=== PATIENT | male | born 1970 | race Caucasian/White ===

== ENCOUNTER 2016-05-05 06:20 | Day surgery (SDC) | payer OTHER ==
[2016-05-03 12:29] VITALS: BMI 30.1
--- NOTE | 2016-05-04 10:54 | HP ---
DATE OF ADMISSION: 05/05/2016 Patient to be admitted to [facility] on May 05, 2016. HISTORY: This is a 45-year-old man admitted to the [facility] for excision of a left anterolateral soft tissue neoplasia. According to the patient, the lesion has been present for quite some time. However, recently there has been significant enlargement over a short period of time. The lesion is now also associated with some discomfort that radiates across the anterior and lateral aspect of the left chest. No past medical history. No history of hypertension; heart disease; diabetes; respiratory, renal or hepatic insufficiency. PAST SURGICAL HISTORY: Significant for repair of a biceps tendon in July 2011. ALLERGIES: PENICILLIN. CURRENT MEDICATIONS: None. SOCIAL HISTORY: Negative tobacco, negative alcohol. FAMILY HISTORY: Nil. REVIEW OF SYSTEMS: Nil. PHYSICAL EXAMINATION: On examination, the patient has an obvious protuberance involving the anterolateral left chest wall close to the costal margin. On palpation, it appears to be confined to the subcutaneous space but is somewhat fixed in its deeper plane. It is nontender on palpation. There are no satellite lesions present, no regional lymphadenopathy. IMPRESSION: Soft tissue neoplasia, left anterolateral chest wall, undetermined etiology. PLAN: Excision of soft tissue neoplasia, left anterolateral chest wall, under local anesthesia with sedation. Indications, alternatives, possible complications reviewed. Consent obtained. Patient to be seen preoperatively by his PMD. Please refer to those notes for those details. PASCUAL FRANCISCO M.D. [id number] cc: Ambulatory Surgery; Dr. Rohan Orozco
[2016-05-05] MEDS ORDERED: LIDOCAINE HCL 1%, 10 MG/ML (20ML VIAL) ONE (07:38)
[2016-05-05] MEDS ORDERED: LIDOCAINE 1%-EPI 1:100,000 30 ML MDV IJ ONE (07:38)
[2016-05-05] MEDS ORDERED: MIDAZOLAM HCL 2 MG/2 ML SINGLE DOSE VIAL ONE (07:53)
[2016-05-05] MEDS ORDERED: PROPOFOL 20 ML ONE ×3 (08:00→08:12)
[2016-05-05] MEDS ORDERED: LIDOCAINE HCL 2% 100 MG/5 ML DISP.SYRIN ONE ×2 (08:00)
[2016-05-05] MEDS ORDERED: LEVOFLOXACIN 500 MG IVPB 100 ML IVPB ONE (08:03)
[2016-05-05] MEDS ORDERED: LIDOCAINE 1%/EPI 1:100000 (20 ML MULTI DOSE VIAL) INF ONE (08:08)
[2016-05-05] MEDS ORDERED: ONDANSETRON 4 MG/2 ML VIAL ONE ×2 (08:19)
[2016-05-05] MEDS ORDERED: GUM MASTIC/STORAX/MSAL/ALCOHOL 1 DRP DROPSBTL MC ONE (08:19)
[2016-05-05] MEDS ORDERED: ONDANSETRON 4 MG/2 ML VIAL IVPUSH PRN (08:42)
[2016-05-05] MEDS ORDERED: oxyCODONE HCL 5 MG TABLET PO PRN (08:42)
[2016-05-05] MEDS ORDERED: PROMETHAZINE HCL 25 MG/1 ML VIAL IVPUSH PRN (08:42)
[2016-05-05] MEDS ORDERED: LACTATED RINGERS SOLUTION 1,000 ML IV SCH (08:45)
--- NOTE | 2016-05-05 08:59 | OP ---
DATE OF OPERATION: 05/05/2016 PREOPERATIVE DIAGNOSIS: Soft tissue neoplasia, left anterolateral chest wall. 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 PROCEDURE: Excision, intramuscular/subfascial left anterolateral chest wall lipomatous neoplasia/intermediate wound closure (fascia). OPERATING SURGEON: Kai Pena MD SIGNAL TOWER OPERATOR: None. ANESTHESIA: Local/MAC, Vy Arenas MD HISTORY: A 45-year-old man who presents with an enlarging soft tissue mass of the left chest wall which is associated with pain that radiates both laterally and anteriorly. Indications, alternatives, possible complications reviewed. Consent obtained. PROCEDURE: With the patient in the right lateral decubitus position, and after IV sedation, the left anterolateral chest wall was prepped and draped in the usual sterile fashion using Betadine. Lidocaine 1% with epinephrine was used to infiltrate soft tissue to create a field block at the intended level of excision. A 5-cm oblique incision was made directly over the mass and deepened into the subcutaneous space. The mass was noted to be subfascial in nature. The fascia of the musculature was incised. Emanating from the muscle fibers of the left anterolateral chest wall, the mass could be visualized. The lipomatous neoplasia was teased from its bed, freeing it from the muscle fibers of the left anterolateral chest wall, ultimately delivering the mass. After adequate hemostasis, the wound was closed in layers. The fascia was approximated using a continuous 3-0 chromic suture. The subcutaneous tissues were approximated with interrupted 3-0 chromic suture. The subcuticular layer was approximated with interrupted 4-0 Biosyn suture. The skin was reapproximated using 4-0 Biosyn in subcuticular space in continuous fashion. Mastisol and Steri-Strips applied. Dressings applied. Procedure terminated. COUNTS: Needle and instrument count correct. ESTIMATED BLOOD LOSS: Minimal. SPECIMEN: Soft tissue subfascial intramuscular neoplasia of the left anterolateral chest wall. DRAINS: None. Patient tolerated the procedure. The procedure was terminated. John [id number] MTDD
[2016-05-05 09:39] VITALS: BP 125/75; PULSE 61; TEMP 98
--- NOTE | 2016-05-07 11:33 | PATH ---
Surgical Pathology Report Patient Name: VASHTI MORENO Med. Rec. #: [id number] /Age/Gender: 1970 (Age: 45) / M Account: [id number] Location: [facility] Taken: 05/05/2016 Received: 05/05/2016 Reported: 05/07/2016 Physicians: Kai Pena M.D. Specimen(s) Received INTRAMUSCULAR LIPOMATOUS NEOPLASM LEFT CHEST WALL Clinical History Benign neoplasm connective and muscle tissue Final Diagnosis SOFT TISSUE, LEFT CHEST WALL, EXCISION: INTRAMUSCULAR LIPOMA. Electronically Signed Toi Espinal M.D. Gross Description Received in formalin, labeled "intramuscular lipomatous neoplasm left chest wall," is a 4.7 x 2.8 x 1.8 cm yellow, irregular portion adipose tissue. Sectioning reveals homogeneous yellow, smooth fat. No areas of hemorrhage or necrosis are identified. Hand Alterations Seamstress sections are submitted in 3 cassettes. 05/06/201605/06/2016
== END 2016-05-05 10:00 | disposition home or self-care (01) ==
LOC: FASU 06:20
PROVIDERS: ATTEND Surgery
PROC: 0KBJ0ZZ Excision of Left Thorax Muscle, Open Approach (ICD-10-PCS; principal; 2016-05-05 08:08)
DX: D21.3 Benign neoplasm of connective and other soft tissue of thorax (principal)
CPT/HCPCS: 88304-TC; 94760